=== PATIENT | male | born 1965 | race Hispanic/Latino ===

== ENCOUNTER 2023-07-31 13:52 | Emergency (ER) | payer OTHER ==
[~2023-07-31] VITALS: Ht 180.3 cm; Wt 72.0 kg
[2023-07-31] MEDS ORDERED: MAGN400C2 PO (14:09)
[2023-07-31] MEDS ORDERED: NS 1,000 ML IV ONE (14:15)
[2023-07-31 14:55] LABS: BASO # 0.1 10^3/uL (0.0-0.2); BASO % 0.3 % (0.0-1.0); EOS # 0.1 10^3/uL (0.0-0.5); EOS % 0.4 % (0.0-3.0); HEMATOCRIT 42.8 % (42.0-52.0); HEMOGLOBIN 14.1 g/dl (13.5-17.5); LYMPH % 6.4 % (24.0-44.0); MEAN CORPUSCULAR HEMOGLOBIN 31.8 pg (27.0-33.0); MEAN CORPUSCULAR HGB CONC 32.9 g/dl (32.0-36.5); MEAN CORPUSCULAR VOLUME 96.4 fl (80.0-96.0); MONO # 0.9 10^3/uL (0.0-0.8); MONO % 6.2 % (2.0-8.0); NEUTROPHILS # 12.8 10^3/uL (1.5-8.5); NEUTROPHILS % 86.4 % (36.0-66.0); PLATELET COUNT, AUTOMATED 243 10^3/uL (150-450); RED BLOOD COUNT 4.44 10^6/uL (4.30-6.10); WHITE BLOOD COUNT 14.8 10^3/uL (4.0-10.0)
[2023-07-31 15:16] LABS: CALCIUM LEVEL 9.8 MG/DL (8.5-10.1); CK-MB VALUE MASS 8.8 NG/ML (<3.6); CREATININE FOR GFR 1.46 MG/DL (0.70-1.30); GLOMERULAR FILTRATION RATE 52.6 (>56); MAGNESIUM LEVEL 1.8 MG/DL (1.8-2.4); POTASSIUM SERUM 4.1 MMOL/L (3.5-5.1)
[2023-07-31 15:18] LABS: FREE T4 1.08 NG/DL (0.89-1.76); THYROID STIMULATING HORMONE 1.738 uIU/ML (0.55-4.78)
[2023-07-31 15:21] LABS: MB/CK RELATIVE INDEX 1.5 (< OR =4)
[2023-07-31 15:46] VITALS: BP 120/75; TEMP 97.5; O2SAT 100
== END 2023-07-31 15:51 | disposition home or self-care (01) ==
LOC: M ED 13:52
DX: E86.0 Dehydration (principal); R00.1 Bradycardia, unspecified; Z79.899 Other long term (current) drug therapy